=== PATIENT | female | born 1970 | race Caucasian/White ===

== ENCOUNTER 2017-05-29 09:46 | Outpatient (CLI) | payer BC | END 2017-05-29 09:47 | disposition home or self-care (01) | LOC: DTY/OP 09:46 | PROVIDERS: ATTEND Specialist | DX: Z01.818 Encounter for other preprocedural examination (principal); E66.01 Morbid (severe) obesity due to excess calories | CPT/HCPCS: 97802 ==

== ENCOUNTER 2017-10-21 16:15 | Inpatient (IN) | payer BC ==
[2017-10-27] MEDS ORDERED: Ketorolac Tromethamine 30 MG/ML VIAL ONE (06:14)
[2017-10-27] MEDS ORDERED: cefOXitin 2 GM VIAL ONE (06:14)
[2017-10-27] MEDS ORDERED: Heparin 5,000 UNITS/ML VIAL ONE (06:14)
[2017-10-27] MEDS ORDERED: Sodium Chloride 0.9% 100 ML ONE (06:15)
[2017-10-27] MEDS ORDERED: Bupivacaine/Epinephrine 0.25% 30 ML VIAL ONE (06:39)
[2017-10-27] MEDS ORDERED: Fentanyl 100 MCG/2 ML VIAL ONE ×2 (06:49→09:40)
[2017-10-27] MEDS ORDERED: Famotidine/PF 20 mg/2ml Vial ONE (06:49)
[2017-10-27] MEDS ORDERED: Fentanyl 250 MCG/5 ML VIAL ONE (06:49)
[2017-10-27] MEDS ORDERED: Midazolam HCl 2 mg/2 ml Vial ONE (07:25)
[2017-10-27] MEDS ORDERED: Meperidine HCl/PF 25 MG/ML VIAL SLOW IVP PRN (08:26)
[2017-10-27] MEDS ORDERED: Promethazine HCl 25 MG/ML VIAL SLOW IVP PRN (08:26)
[2017-10-27] MEDS ORDERED: Promethazine HCl 25 MG/ML VIAL IM PRN ×2 (08:26→11:21)
[2017-10-27] MEDS ORDERED: Ondansetron HCl/PF 4 MG/2 ML Vial IVP PRN ×2 (08:26→11:21)
[2017-10-27] MEDS ORDERED: Promethazine HCl 25 MG/ML VIAL ONE (09:40)
[2017-10-27 11:08] VITALS: BMI 37.2
[2017-10-27] MEDS ORDERED: Dextrose 5% in Water 1,000 ML IV PRN (11:21)
[2017-10-27] MEDS ORDERED: diphenhydrAMINE 50 MG/ML VIAL IVP PRN (11:21)
[2017-10-27] MEDS ORDERED: Morphine 4 MG/ML VIAL SLOW IVP PRN (11:21)
[2017-10-27] MEDS ORDERED: Hydrocodone-Acetamin 15 ML UDCUP PO PRN (11:21)
[2017-10-27] MEDS ORDERED: Insulin Regular 300 UNITS/3 ML VIAL SC PRN (11:21)
[2017-10-27] MEDS ORDERED: Dextrose 50% Abboject 50 ML SYRINGE SLOW IVP PRN (11:21)
[2017-10-27] MEDS ORDERED: hydrALAZINE 20 MG/ML VIAL SLOW IVP PRN (11:21)
[2017-10-27] MEDS: Acetaminophen 1,000 MG in Premix Bag 1 BAG IVPB SCH ×2 (11:35→17:39)
[2017-10-27] MEDS: 1/2 NS w/KCL 20 mEq 1,000 ML IV SCH ×2 (11:35→19:23)
[2017-10-27] MEDS: Ketorolac Tromethamine 30 MG/ML VIAL IVP SCH ×2 (11:35→17:40)
[2017-10-27] MEDS ORDERED: Glycopyrrolate 0.2 MG/ML 5 ML SYRINGE ONE (12:40)
[2017-10-27] MEDS ORDERED: Ondansetron HCl/PF 4 MG/2 ML Vial ONE (12:40)
[2017-10-27] MEDS ORDERED: PROPOFOL 200 MG/20 ML VIAL ONE (12:40)
[2017-10-27] MEDS ORDERED: Metoclopramide HCl 10 MG/2 ML VIAL ONE (12:40)
[2017-10-27] MEDS ORDERED: Lidocaine 1% PF 5 ML VIAL ONE (12:40)
[2017-10-27] MEDS ORDERED: Enoxaparin Sodium 40 MG/0.4 ML SYRINGE SC SCH (21:00)
[2017-10-28] MEDS: Acetaminophen 1,000 MG in Premix Bag 1 BAG IVPB SCH ×2 (00:23→06:04)
[2017-10-28] MEDS: Ketorolac Tromethamine 30 MG/ML VIAL IVP SCH ×2 (00:23→06:04)
[2017-10-28] MEDS: 1/2 NS w/KCL 20 mEq 1,000 ML IV SCH (03:55)
[2017-10-28 04:18] LABS: #Basophils 0.1 thou/uL (0.0-0.2); #Lymphocytes 2.9 thou/uL (1.20-3.40); #Monocytes 0.8 thou/uL (0.11-0.59); %Basophils 0.7 % (0.0-1.0); %Eosinophils 0.2 % (0.0-10.0); %Lymphocytes 32.8 % (21.0-51.0); %Monocytes 9.2 % (0.0-10.0); %Neutrophils 57.1 % (42.0-75.0); Mean Corpuscular Hemoglobin 32.5 pg (27.0-31.0); Mean Corpuscular Volume 92.9 fL (78.0-98.0); Mean Platelet Volume 8.1 fL (7.4-10.4); Platelet Count 210 thou/uL (130-400); RBC Distribution Width 11.9 % (11.5-14.5); White Blood Cell (WBC) Count 8.8 thou/uL (4.8-10.8)
--- NOTE | 2017-10-28 04:23 | OP ---
DATE OF OPERATION: 10/27/2017 PREOPERATIVE DIAGNOSIS: Morbid obesity. POSTOPERATIVE DIAGNOSIS: Morbid obesity. OPERATION PERFORMED: Laparoscopic vertical sleeve gastrectomy using the ViSiGi device. SURGEON: Sonny Negrete MD CORPORATE ASSOCIATE ATTORNEY: Tracy Chavez, Medical Student. ANESTHESIA: General endotracheal. INDICATIONS: The patient is a 47-year-old white female. She has undergone preoperative evaluation a nd education and presents at this time for sleeve gastrectomy. DESCRIPTION OF OPERATION: Informed consent was obtained. The patient was taken to the operating lucie m where general endotracheal anesthesia obtained with the patient in supine position. Abdomen was pr epped with ChloraPrep and draped in sterile fashion. Local anesthetic was infiltrated and 5 mm supra umbilical incision was created through which Veress needle was passed to the peritoneal cavity and pn eumoperitoneum established using carbon dioxide up to a pressure of 15 mmHg. A 5 mm trocar port was passed through this same incision. Laparoscopic camera was passed through this port. Under direct v ision, 4 additional ports were placed including bilateral 5 mm subcostal ports, a 12 mm right paramed kenya port and a 15 mm left paramedian port. A 5-mm epigastric incision was created through which Nathansen retractor was passed into the abdomina l cavity and used to retract the left lobe of the liver. The patient was placed into reverse [place] position. The ViSiGi device was advanced within the stomach and used to decompress this. The pylorus was ident ified and beginning 4 cm proximal to the pylorus, the omentum and vascular tissue along the greater c urvature was divided using the LigaSure in an ascending fashion up to the angle of His. All posterio r adhesions were mobilized. The short gastric vessels were carefully divided and then hemostasis was maintained using the LigaSure. Once this was completely mobilized, the ViSiGi was carefully positio shakira at the level of the pylorus and placed to suction, which was clearly defining the lesser curvatur e of the stomach. The gastrectomy was then performed using a series of fires of the [place] stapler using a green load followed by a gold load and a series of blue loads until completion of the gastrectomy. The ViSiGi a long the lesser curvature was used as a size 36 bougie to guide in the gastric division. Care was ta gin to avoid narrowing the incisura or the gastroesophageal junction. The integrity of the staple line was then assessed by insufflating gas through the ViSiGi while irrig ating along the staple line. There was no evidence of an air leak. There was no evidence of bleedin g along the staple line. The resected stomach was then removed through the 15 mm port and the fascia was closed with 0 Vicryl suture using a GraNee needle. I then closed the 12 mm port also using the GraNee needle and 0 Vicryl suture. The Nathansen retractor was removed. All ports and instruments were removed under direct v ision. All irrigant was aspirated. Pneumoperitoneum was carefully evacuated. Quarter percent Patrick ine with epinephrine was infiltrated into each port site. Skin edges approximated with 4-0 Monocryl subcuticular suture. Dermabond was placed externally. There were no complications. The patient satinder erated the procedure well and was taken to recovery room in stable condition. FINDINGS: Her anatomy was entirely normal. There was oozing from along the staple line and this was easily repaired using Hemoclips. There were no complications. The patient tolerated the procedure well and was taken to recovery room in stable condition.
[2017-10-28 04:35] LABS: Anion Gap 9 mmol/L (10-20); BUN (Urea Nitrogen) 13 mg/dL (7.0-18.7); Calc. Creatinine Clearance 171 mL/min (70-130); Calcium 8.6 mg/dL (7.8-10.44); Carbon Dioxide 22 mmol/L (22-29); Chloride 107 mmol/L (98-107); Estimated GFR-MDRD 86; Glucose 99 mg/dL (70-105); Potassium 4.4 mmol/L (3.5-5.1); Sodium 134 mmol/L (136-145)
[2017-10-28 07:34] VITALS: BP 123/69; TEMP 97.6
[2017-10-28] MEDS ORDERED: Pantoprazole 40 MG VIAL IVP SCH (09:00)
[2017-10-28] MEDS ORDERED: Hydrocodone-Acetamin 15 ML UDCUP PO PRN (09:29)
== END 2017-10-28 10:56 | disposition home or self-care (01) | DRG 620 ==
LOC: SURG A 10-27 05:59 → SJJU 10-27 10:13
PROVIDERS: ADMIT Specialist; ATTEND Specialist
PROC: 0DB64Z3 Excision of Stomach, Percutaneous Endoscopic Approach, Vertical (ICD-10-PCS; principal; 2017-10-27)
DX: E66.01 Morbid (severe) obesity due to excess calories (principal); E87.1 Hypo-osmolality and hyponatremia; E10.65 Type 1 diabetes mellitus with hyperglycemia; E03.9 Hypothyroidism, unspecified; G47.33 Obstructive sleep apnea (adult) (pediatric); R11.10 Vomiting, unspecified; Z68.37 Body mass index [BMI] 37.0-37.9, adult; Z88.5 Allergy status to narcotic agent; Z79.4 Long term (current) use of insulin; Z96.41 Presence of insulin pump (external) (internal); Z79.899 Other long term (current) drug therapy
CPT/HCPCS: 36415; 36416; 80048; 85025; 88307; 88312; 94760; C9113; J0131; J0694; J1644; J1650; J1815; J1885; J2001; J2250; J2270; J2405; J2550; J2704; J2765; J3010; J7050; S0028